=== PATIENT | female | born 1940 | race Caucasian/White ===

== ENCOUNTER 2020-05-02 13:40 | Outpatient (CLI) | payer MEDICARE, BC | END 2020-05-02 13:41 | disposition home or self-care (01) | LOC: CSHMAMMO 13:40 | PROVIDERS: ATTEND Internal Medicine | DX: Z12.31 Encounter for screening mammogram for malignant neoplasm of breast (principal) | CPT/HCPCS: 77063; 77067 ==

== ENCOUNTER 2021-07-05 13:45 | Outpatient (CLI) | payer MEDICARE, BC | END 2021-07-05 13:46 | disposition home or self-care (01) | LOC: CSHMAMMO 13:45 | PROVIDERS: ATTEND Family Medicine | DX: Z12.31 Encounter for screening mammogram for malignant neoplasm of breast (principal) | CPT/HCPCS: 77063; 77067 ==

== ENCOUNTER 2023-11-17 15:03 | Emergency (ER) | payer MEDICARE ==
[2023-11-17] MEDS ORDERED: Ibuprofen 200 MG TAB ONE (15:36)
== END 2023-11-17 16:29 | disposition home or self-care (01) ==
LOC: CSHERS 15:03
DX: S92.352A Displaced fracture of fifth metatarsal bone, left foot, initial encounter for closed fracture (principal); S82.62XA Displaced fracture of lateral malleolus of left fibula, initial encounter for closed fracture; S82.52XA Displaced fracture of medial malleolus of left tibia, initial encounter for closed fracture; E11.9 Type 2 diabetes mellitus without complications; I10 Essential (primary) hypertension; W19.XXXA Unspecified fall, initial encounter
CPT/HCPCS: 29515

== ENCOUNTER 2025-01-20 10:45 | Outpatient (CLI) | payer MEDICARE | END 2025-01-20 10:46 | disposition home or self-care (01) | LOC: CSHMAMMO 10:45 | PROVIDERS: ATTEND Obstetrics & Gynecology | DX: Z12.31 Encounter for screening mammogram for malignant neoplasm of breast (principal); N64.89 Other specified disorders of breast | CPT/HCPCS: 77063; 77067 ==